=== PATIENT | male | born 1955 | race Caucasian/White ===

== ENCOUNTER 2019-05-16 11:23 | Emergency (ER) | payer OTHER ==
[2019-05-16] MEDS ORDERED: LIPITOR20 M1 PO (12:06)
[2019-05-16] MEDS ORDERED: COREG3.125 MG PO (12:06)
[2019-05-16] MEDS ORDERED: ZESTRIL5 M1 PO (12:06)
[2019-05-16] MEDS ORDERED: BACTRIM DS1 TAB PO (12:06)
[2019-05-16] MEDS ORDERED: CLOPIDOGREL75 MG PO (12:06)
[2019-05-16] MEDS ORDERED: KEFLEX500 M1 PO (12:06)
[2019-05-16 12:23] VITALS: BP 176/82
== END 2019-05-16 12:26 | disposition home or self-care (01) ==
LOC: ED 11:23
DX: L02.31 Cutaneous abscess of buttock (principal); K59.00 Constipation, unspecified; T50.916A Underdosing of multiple unspecified drugs, medicaments and biological substances, initial encounter; I10 Essential (primary) hypertension; I25.2 Old myocardial infarction; F17.200 Nicotine dependence, unspecified, uncomplicated; Z91.128 Patient's intentional underdosing of medication regimen for other reason

== ENCOUNTER 2021-05-24 03:11 | Emergency (ER) | payer MEDICARE, MEDICAID ==
[~2021-05-24] VITALS: Ht 165.1 cm; Wt 78.2 kg
[~2021-05-24 03:11] MED LIST: BACTRIM DS1 TAB PO; CLOPIDOGREL75 MG PO; COREG3.125 MG PO; KEFLEX500 M1 PO; LIPITOR20 M1 PO; ZESTRIL5 M1 PO
[2021-05-24] MEDS ORDERED: LISINOPRIL5 MG PO (03:26)
[2021-05-24] MEDS ORDERED: CARVEDILOL3.125 MG PO (03:26)
[2021-05-24] MEDS ORDERED: GABAPENTIN100 MG PO (04:47)
[2021-05-24] MEDS ORDERED: PERCOCET 5/325M1 TAB PO (04:47)
[2021-05-24] MEDS ORDERED: ZOFRAN4 MG/TAB PO (04:47)
[2021-05-24 04:54] VITALS: BP 152/79
== END 2021-05-24 05:00 | disposition home or self-care (01) ==
LOC: ED 03:11
DX: M16.12 Unilateral primary osteoarthritis, left hip (principal); M54.32 Sciatica, left side; I10 Essential (primary) hypertension; I25.2 Old myocardial infarction; F17.200 Nicotine dependence, unspecified, uncomplicated; Z86.73 Personal history of transient ischemic attack (TIA), and cerebral infarction without residual deficits